=== PATIENT | male | born 1980 | race Caucasian/White ===

== ENCOUNTER 2022-12-01 12:28 | Emergency (ER) | payer OTHER ==
[~2022-12-01] VITALS: Ht 182 cm; Wt 122.0 kg
--- NOTE | 2022-12-01 12:38 | ED General ---
General Chief Complaint: General Problems/Pain Stated Complaint: DIZZINESS; GEN WEAKNESS History of Present Illness Date Seen by Provider: Dec 01, 2022 Time Seen by Provider: 12:29 Initial Comments 42 yr M with PMH of childhood asthma , is sent here from urgent care by EMS with c/o left sided chest pain which is aggravated by pressing on the area, which has been going on for the past 2 weeks, and is associated with a couple episodes of mild dizziness. Patient eats only 2 meals a day and has not been drinking much water lately. 3 days ago patient had diarrhea, couple of episodes for 1 day only, and has since resolved. Patient also feels intermittently nauseous. Denies fever, palpitations, URI symptoms, cough, abdominal pain, vomiting. No known sick contacts. Patient does not have a PCP and has not seen a doctor in a very long time. Patient is not taking any medications. Patient also states that lately he has been feeling a lot of anxiety and he is unsure what it is due to. Patient states that he has some stress at work but other than that he cannot identify any trigger to the anxiety. Patient states that when he feels anxious he starts feeling a pressure in his chest. Allergies and Home Medications Allergies Coded Allergies: No Known Drug Allergies (Unverified , 12/01/22) Patient Home Medication List Home Medication List Reviewed: Yes Review of Systems Review of Systems Constitutional: no symptoms reported EENTM: no symptoms reported Respiratory: no symptoms reported Cardiovascular: see HPI, chest pain Gastrointestinal: no symptoms reported Genitourinary: no symptoms reported Musculoskeletal: no symptoms reported Skin: no symptoms reported Psychiatric/Neurological: No Symptoms Reported Hematologic/Lymphatic: No Symptoms Reported Immunological/Allergic: no symptoms reported Physical Exam Vital Signs Vital Signs - First Documented 12/01/22 13:10 Temp 36.0 Pulse 108 Resp 20 B/P (MAP) 139/ Pulse Ox 96 O2 Delivery Room Air Capillary Refill : Height, Weight, BMI Height: '" Weight: lbs. oz. kg; BMI Method: General Appearance: Mild Distress, Obese HEENT: PERRL/EOMI, Normal ENT Inspection Neck: Full Range of Motion, Normal Inspection Respiratory: Lungs Clear, Normal Breath Sounds, No Accessory Muscle Use, No Respiratory Distress Cardiovascular: Regular Rate, Rhythm (Earlier patient had tachycardia with heart rate approximately 100-105), No Edema, No Gallop, No JVD, No Murmur, Other (Point tenderness over the left costochondral junctions of the second, third rib which is reproducible.) Gastrointestinal: Normal Bowel Sounds, Non Tender, Soft Back: Normal Inspection, No CVA Tenderness Neurologic/Psychiatric: Alert, Oriented x3, Normal Mood/Affect Skin: Normal Color Focused Exam Lactate Level 12/01/22 12:43: Lactic Acid Level 1.84 Lactic Acid Level Laboratory Tests Test 12/01/22 12:43 Lactic Acid Level 1.84 MMOL/L (0.50-2.00) Progress/Results/Core Measures Suspected Sepsis SIRS Temperature: Pulse: Respiratory Rate: Laboratory Tests 12/01/22 12:31: White Blood Count 9.9 Blood Pressure / Mean: 12/01/22 12:43: Lactic Acid Level 1.84 Laboratory Tests 12/01/22 12:31: Creatinine 0.87, INR Comment 0.9, Platelet Count 272, Total Bilirubin 0.4 Results/Orders Lab Results Laboratory Tests Test 12/01/22 12:31 12/01/22 12:43 12/01/22 13:05 Range/Units White Blood Count 9.9 4.3-11.0 10^3/uL Red Blood Count 5.44 4.30-5.52 10^6/uL Hemoglobin 14.8 13.3-17.7 g/dL Hematocrit 44 40-54 % Mean Corpuscular Volume 81 80-99 fL Mean Corpuscular Hemoglobin 27 25-34 pg Mean Corpuscular Hemoglobin Concent 33 32-36 g/dL Red Cell Distribution Width 13.2 10.0-14.5 % Platelet Count 272 130-400 10^3/uL Mean Platelet Volume 10.5 9.0-12.2 fL Immature Granulocyte % (Auto) 0 % Neutrophils (%) (Auto) 74 42-75 % Lymphocytes (%) (Auto) 16 12-44 % Monocytes (%) (Auto) 7 0-12 % Eosinophils (%) (Auto) 1 0-10 % Basophils (%) (Auto) 1 0-10 % Neutrophils # (Auto) 7.3 1.8-7.8 10^3/uL Lymphocytes # (Auto) 1.6 1.0-4.0 10^3/uL Monocytes # (Auto) 0.7 0.0-1.0 10^3/uL Eosinophils # (Auto) 0.1 0.0-0.3 10^3/uL Basophils # (Auto) 0.1 0.0-0.1 10^3/uL Immature Granulocyte # (Auto) 0.0 0.0-0.1 10^3/uL Prothrombin Time 12.9 12.2-14.7 SEC INR Comment 0.9 0.8-1.4 Activated Partial Thromboplast Time 27 24-35 SEC Sodium Level 140 135-145 MMOL/L Potassium Level 3.8 3.6-5.0 MMOL/L Chloride Level 102 98-107 MMOL/L Carbon Dioxide Level 24 21-32 MMOL/L Anion Gap 14 5-14 MMOL/L Blood Urea Nitrogen 11 7-18 MG/DL Creatinine 0.87 0.60-1.30 MG/DL Estimat Glomerular Filtration Rate 110 BUN/Creatinine Ratio 13 Glucose Level 119 H 70-105 MG/DL Calcium Level 9.3 8.5-10.1 MG/DL Corrected Calcium 9.1 8.5-10.1 MG/DL Magnesium Level 2.0 1.6-2.4 MG/DL Total Bilirubin 0.4 0.1-1.0 MG/DL Aspartate Amino Transf (AST/SGOT) 19 5-34 U/L Alanine Aminotransferase (ALT/SGPT) 31 0-55 U/L Alkaline Phosphatase 74 40-136 U/L Troponin I < 0.30 <0.30 NG/ML Total Protein 7.0 6.4-8.2 GM/DL Albumin 4.2 3.2-4.5 GM/DL Lipase 19 8-78 U/L Influenza Type A (RT-PCR) Not Detected Not Detecte Influenza Type B (RT-PCR) Not Detected Not Detecte SARS-CoV-2 RNA (RT-PCR) Not Detected Not Detecte Lactic Acid Level 1.84 0.50-2.00 MMOL/L Urine Color YELLOW Urine Clarity CLEAR Urine pH 6.0 5-9 Urine Specific Crane 1.015 L 1.016-1.022 Urine Protein NEGATIVE NEGATIVE Urine Glucose (UA) NEGATIVE NEGATIVE Urine Ketones NEGATIVE NEGATIVE Urine Nitrite NEGATIVE NEGATIVE Urine Bilirubin NEGATIVE NEGATIVE Urine Urobilinogen 0.2 < = 1.0 MG/DL Urine Leukocyte Esterase NEGATIVE NEGATIVE Urine RBC (Auto) 1+ H NEGATIVE Urine RBC 0-2 /HPF Urine WBC 2-5 /HPF Urine Squamous Epithelial Cells 5-10 /HPF Urine Crystals NONE /LPF Urine Bacteria TRACE /HPF Urine Casts NONE /LPF Urine Mucus SMALL H /LPF Urine Culture Indicated NO Urine Opiates Screen NEGATIVE NEGATIVE Urine Oxycodone Screen NEGATIVE NEGATIVE Urine Methadone Screen NEGATIVE NEGATIVE Urine Propoxyphene Screen NEGATIVE NEGATIVE Urine Barbiturates Screen NEGATIVE NEGATIVE Ur Tricyclic Antidepressants Screen NEGATIVE NEGATIVE Urine Phencyclidine Screen NEGATIVE NEGATIVE Urine Amphetamines Screen NEGATIVE NEGATIVE Urine Methamphetamines Screen NEGATIVE NEGATIVE Urine Benzodiazepines Screen NEGATIVE NEGATIVE Urine Cocaine Screen NEGATIVE NEGATIVE Urine Cannabinoids Screen NEGATIVE NEGATIVE My Orders Orders - KARLA LOUISE MD Cbc With Automated Diff (12/01/22 12:38) Comprehensive Metabolic Panel (12/01/22 12:38) Drug Screen Stat (Urine) (12/01/22 12:38) Lactic Acid Analyzer (12/01/22 12:38) Lipase (12/01/22 12:38) Magnesium (12/01/22 12:38) Protime With Inr (12/01/22 12:38) Partial Thromboplastin Time (12/01/22 12:38) Ua Culture If Indicated (12/01/22 12:38) Troponin I Fs (12/01/22 12:38) Covid 19 Inhouse Test (12/01/22 12:39) Influenza A And B By Pcr (12/01/22 12:39) Chest 1 View Ap/Pa Only (12/01/22 12:40) Lorazepam Tablet (Ativan Tablet) (12/01/22 13:48) Vital Signs/I&O 12/01/22 13:10 Temp 36.0 Pulse 108 Resp 20 B/P (MAP) 139/ Pulse Ox 96 O2 Delivery Room Air Capillary Refill : Progress Note : Progress Note 1. ACS RULE OUT: COSTOCHONDRITIS: - CXR: no acute findings - CBC/. CMP: normal - Lipase negative - Troponin undetected - EKG: tachycardia, non-ischemic - UA/ UDS: negative - ASA 324 mg STAT -Patient has reproducible point tenderness over the left side of his costochondral junction which indicates costochondritis, along with a negative ACS workup. Patient is also extremely anxious in the ER which may also be attributing towards the chest pain and tachycardia. In the ER the patient's heart rate has stabilized to the 90s since being here. Vitals otherwise stable - Advised Ibuprofen 600mg Q6H, to be taken with food - Over the counter lidoderm patches to be applied over area of pain on the chest - Follow up with PCP in the next 3 to 7 days. Advised to set up care with PCP either with [facility], or with Dr. Elliott's office. The patient was seen in the ED, and treated appropriately to presentation at a specific point in time. Patient is informed that there is a possibility that disease and illness can evolve and change in acuity rapidly or slowly after patient is discharged from the ER. Precautionary advice given to the patient for immediate return to ER if symptoms worsen or do not resolve, and to seek emergency care sooner rather than later. Pt also advised on the importance of PCP follow up and compliance with management and follow up plan with PCP and/or specialist, as this is part of the management plan. Pt verbally expressed understanding. 2. ACUTE ANXIETY: - Ativan 0.5mg tab, this improved his anxiety - Pt will need PCP follow up for further anxiety management Diagnostic Imaging Diagonstic Imaging: Xray Plain Films/CT/US/NM/MRI: chest Comments [facility] [place], [place] NAME: [facility] REC#: [id number] PT STATUS: REG ER : 1980 PHYSICIAN: KARLA LOUISE MD ADMIT DATE: 12/01/22/ER FS Draft Date of Exam:12/01/22 CHEST 1 VIEW AP/PA ONLY Indication: Dizziness and weakness, chest pain. Findings: Lungs clear. No failure, effusion or pneumothorax. Impression: No acute-appearing abnormality. Dictated on workstation # [id number] Dict: 12/01/22 1318 Trans: 12/01/22 1319 CV [id number] Interpreted by: FABIÁN GIORDANO Electronically signed by: Departure Impression Primary Impression: Costochondritis, acute Additional Impressions: Anxiety Ruled out for myocardial infarction Disposition: 01 HOME, SELF-CARE Condition: Stable Departure-Patient Inst. Referrals: NO,LOCAL PHYSICIAN (PCP) Primary Care Physician Patient Instructions: Costochondritis (DC), Anxiety, Adult (DC) Add. Discharge Instructions: - Advised Ibuprofen 600mg Q6H, to be taken with food - Over the counter lidoderm patches to be applied over area of pain on the chest - Follow up with PCP in the next 3 to 7 days. Advised to set up care with PCP either with [facility], or with Dr. Elliott's office. - Return to ER if symptoms worsening. All discharge instructions reviewed with patient and/or family. Voiced understanding. Work/School Note: Work Release Form Date Seen in the Emergency Department: Dec 01, 2022 Return to Work: Dec 03, 2022 Restrictions: No Restrictions Other Restrictions Listed Below: Follow up with PCP needed to clear patient if symptoms continue KARLA LOUISE MD Dec 01, 2022 12:37
[2022-12-01 12:46] LABS: BASOPHILS # (AUTO) 0.1 10^3/uL (0.0-0.1); BASOPHILS % (AUTO) 1 % (0-10); EOSINOPHILS # (AUTO) 0.1 10^3/uL (0.0-0.3); EOSINOPHILS % (AUTO) 1 % (0-10); HEMATOCRIT 44 % (40-54); HEMOGLOBIN 14.8 g/dL (13.3-17.7); LYMPHOCYTES # (AUTO) 1.6 10^3/uL (1.0-4.0); LYMPHOCYTES % (AUTO) 16 % (12-44); MEAN CORPUSCULAR HEMOGLOBIN 27 pg (25-34); MEAN CORPUSCULAR HGB CONC 33 g/dL (32-36); MEAN CORPUSCULAR VOLUME 81 fL (80-99); MEAN PLATELET VOLUME 10.5 fL (9.0-12.2); MONOCYTES # (AUTO) 0.7 10^3/uL (0.0-1.0); MONOCYTES % (AUTO) 7 % (0-12); NEUTROPHILS # (AUTO) 7.3 10^3/uL (1.8-7.8); NEUTROPHILS % (AUTO) 74 % (42-75); PLATELET COUNT 272 10^3/uL (130-400); WHITE BLOOD COUNT 9.9 10^3/uL (4.3-11.0)
[2022-12-01 12:59] LABS: INR 0.9 (0.8-1.4); PROTHROMBIN TIME PATIENT 12.9 SEC (12.2-14.7)
[2022-12-01 13:06] LABS: ALANINE AMINOTRANSFERASE 31 U/L (0-55); ALKALINE PHOSPHATASE 74 U/L (40-136); BILIRUBIN,TOTAL 0.4 MG/DL (0.1-1.0); BUN/CREATININE RATIO 13; CALCIUM 9.3 MG/DL (8.5-10.1); CARBON DIOXIDE 24 MMOL/L (21-32); CHLORIDE 102 MMOL/L (98-107); CREATININE SERUM 0.87 MG/DL (0.60-1.30); GFR ESTIMATED 110; GLUCOSE 119 MG/DL (70-105); POTASSIUM 3.8 MMOL/L (3.6-5.0); SODIUM 140 MMOL/L (135-145)
[2022-12-01 13:07] LABS: ALBUMIN 4.2 GM/DL (3.2-4.5); LIPASE 19 U/L (8-78)
[2022-12-01 13:11] LABS: BILIRUBIN,URINE NEGATIVE (NEGATIVE); CLARITY,URINE CLEAR; COLOR,URINE YELLOW; GLUCOSE, URINE (UA) NEGATIVE (NEGATIVE); KETONES,URINE NEGATIVE (NEGATIVE); LEUKOCYTE ESTERASE ,URINE NEGATIVE (NEGATIVE); NITRITE,URINE NEGATIVE (NEGATIVE); PROTEIN,URINE NEGATIVE (NEGATIVE)
--- NOTE | 2022-12-01 13:19 | Diagnostic Imaging Report ---
Indication: Dizziness and weakness, chest pain. Findings: Lungs clear. No failure, effusion or pneumothorax. Impression: No acute-appearing abnormality. Dictated by: Dictated on workstation # [id number]
[2022-12-01 13:30] LABS: BACTERIA,URINE TRACE /HPF; RBC,URINE 0-2 /HPF
[2022-12-01 13:41] LABS: AMPHETAMINE SCREEN, URINE NEGATIVE (NEGATIVE); BARBITURATE SCREEN URINE NEGATIVE (NEGATIVE); BENZODIAZEPINES SCREEN URINE NEGATIVE (NEGATIVE); CANNABINOID SCREEN, URINE NEGATIVE (NEGATIVE); COCAINE SCREEN URINE NEGATIVE (NEGATIVE); METHADONE STAT NEGATIVE (NEGATIVE); OPIATE SCREEN URINE NEGATIVE (NEGATIVE); OXYCODONE STAT NEGATIVE (NEGATIVE); PROPOXYPHENE STAT NEGATIVE (NEGATIVE); TRICYCLIC ANTIDEPRESSANTS SCRE NEGATIVE (NEGATIVE)
[2022-12-01] MEDS ORDERED: LORazepam 0.5 MG (ATIVAN) TABLET PO STA (13:48)
[2022-12-01 14:20] VITALS: BP 134/72
== END 2022-12-01 14:20 | disposition home or self-care (01) ==
LOC: ER FS 12:30
DX: M94.0 Chondrocostal junction syndrome [Tietze] (principal); F41.9 Anxiety disorder, unspecified; E66.9 Obesity, unspecified; Z68.36 Body mass index [BMI] 36.0-36.9, adult; Z20.822 Contact with and (suspected) exposure to COVID-19
CPT/HCPCS: 36415; 71045; 80053; 80306; 81000; 83605; 83690; 83735; 84484; 85025; 85610; 85730; 87636